=== PATIENT | female | born 1980 | race American Indian/Alaskan Native ===

== ENCOUNTER 2019-06-19 00:51 | Emergency (ER) | payer SELFPAY ==
--- NOTE | 2019-06-19 02:44 | Cat Scan Report ---
CT HEAD WITHOUT CONTRAST INDICATION: Fall/head inj TECHNIQUE: Axial slices were obtained through the head. Coronal and sagittal reformatted images were obtained. COMPARISON: None available. FINDINGS: There is no intracranial hemorrhage or extra-axial fluid collection. Ventricles, basilar cisterns, an d sulci appear within normal limits for age. There is no mass lesion or midline shift. No acute janet torial infarct is identified. Bone windows demonstrate no acute osseous abnormality. Paranasal sinuses and mastoid air cells appear clear. TECHNIQUE: All CT scans at this facility use dose modulation, iterative reconstruction, automated ex posure control, weight based dosing, when appropriate, to reduce radiation dose to as low as reasonab ly achievable. IMPRESSION: 1. No acute intracranial abnormality. Signer Name: Truman Westbrook MD Signed: 06/19/2019 2:40 AM Workstation Name: [id number]
[2019-06-19] MEDS ORDERED: DIPHtheria,PERTUSSIS(ACELL),TETANUS VACCINE/PF 0.5 ML VIAL IM ONE (04:36)
[2019-06-19] MEDS ORDERED: IBUPROFEN 400 MG TAB PO ONE (04:36)
[2019-06-19] MEDS ORDERED: LIDOCAINE-MPF (1%) 10 MG/1 ML VIAL 5 ML INFILTRATI ONE (04:37)
--- NOTE | 2019-06-19 04:39 | Emergency Department Report ---
ED Fall HPI - General Chief Complaint: Fall Stated Complaint: FELL AND HIT HEAD Source: family Mode of arrival: Ambulatory - History of Present Illness Initial Comments: Per EMS, patient is a 39-year-old -[place] female with no past medical history who presented to the ED with acute onset frontal scalp bleeding laceration after she slipped and fell at home while walking on the floor. Per EMS, patient had been attending [employer] for her daughter who just a 19 years old and that she had been drinking alcohol prior to the fall. The EMS states that the patient appeared heavily intoxicated in route to the ED with profuse bleeding on her frontal scalp. Per EMS, the family stated the patient did not lose any consciousness, has not had any nausea or vomiting, change in vision, chest pain or shortness of breath, neck pain, back pain, numbness and tingling or weakness of upper and lower extremities bilaterally, dizziness or lightheadedness prior to arrival in the ED. Patient personally states that she is not up-to-date with any tetanus vaccinations. MD Complaint: fall, other (frontal scalp laceration) -: Sudden, hour(s) (1) Fall From: standing ( and walking in the house while intoxicated on alcohol) When Fall Occurred: 1 hour [employer] Fall Witnessed: yes, by family Place Fall Occurred: home Loss of Consciousness: none Prolonged Down Time?: no Symptoms Prior to Fall: other (Intoxicated on alcohol) Location: head (frontal scalp) Severity: moderate Severity scale (0 -10): 6 Quality: sharp, aching Context: alcohol use Associated Symptoms: denies, headache. denies: neck pain, numbness, weakness, chest paint, shortness of breath, abdominal pain, hematuria, unable to walk, lightheaded, vertigo, confusion, other - Related Data Previous Rx's Medication Instructions Recorded Last Taken Type Ibuprofen [Motrin] 600 mg PO Q8H PRN #20 tablet 06/19/19 Unknown Rx cephALEXin [Keflex] 500 mg PO Q12HR #20 cap 06/19/19 Unknown Rx Allergies Allergy/AdvReac Type Severity Reaction Status Date / Time No Known Allergies Allergy Unverified 06/19/19 01:10 ED Review of Systems ROS: Stated complaint: FELL AND HIT HEAD Other details as noted in HPI Constitutional: denies: chills, fever Eyes: denies: eye pain, eye discharge, vision change ENT: denies: ear pain, throat pain Respiratory: denies: cough, shortness of breath, wheezing Cardiovascular: denies: chest pain, palpitations Endocrine: no symptoms reported Gastrointestinal: denies: abdominal pain, nausea, diarrhea Genitourinary: denies: urgency, dysuria, discharge Musculoskeletal: denies: back pain, joint swelling, arthralgia Skin: other (Bleeding right frontal scalp laceration). denies: rash, lesions Neurological: denies: headache, weakness, paresthesias Psychiatric: denies: anxiety, depression Hematological/Lymphatic: denies: easy bleeding, easy bruising ED Past Medical Hx - Past Medical History Previous Medical History?: No - Surgical History Past Surgical History?: No - Social History Smoking Status: Current Every Day Smoker Substance Use Type: Alcohol, Marijuana - Medications Home Medications: Home Medications Medication Instructions Recorded Confirmed Last Taken Type Ibuprofen [Motrin] 600 mg PO Q8H PRN #20 tablet 06/19/19 Unknown Rx cephALEXin [Keflex] 500 mg PO Q12HR #20 cap 06/19/19 Unknown Rx ED Physical Exam - General Limitations: Altered Mental Status General appearance: alert, in no apparent distress - Head Head exam: Present: other (Bleeding 3 cm right sided frontal scalp laceration) - Eye Eye exam: Present: normal appearance, PERRL, EOMI, other (Right periorbital hematoma with no tenderness) Pupils: Present: normal accommodation - ENT ENT exam: Present: normal exam, normal orophraynx, mucous membranes moist, TM's normal bilaterally, normal external ear exam - Neck Neck exam: Present: normal inspection, full ROM. Absent: tenderness, lymphadenopathy, thyromegaly - Respiratory Respiratory exam: Present: normal lung sounds bilaterally. Absent: respiratory distress, wheezes, rales, rhonchi, chest wall tenderness, accessory muscle use, decreased breath sounds, prolonged expiratory - Cardiovascular Cardiovascular Exam: Present: regular rate, normal rhythm, normal heart sounds. Absent: systolic murmur, diastolic murmur, rubs, gallop - GI/Abdominal GI/Abdominal exam: Present: soft, normal bowel sounds. Absent: tenderness, guarding, rebound, hyperactive bowel sounds - Extremities Exam Extremities exam: Present: normal inspection, full ROM, normal capillary refill - Back Exam Back exam: Present: normal inspection, full ROM. Absent: tenderness, CVA tenderness (R), muscle spasm, paraspinal tenderness, vertebral tenderness - Neurological Exam Neurological exam: Present: alert, oriented X3, CN II-XII intact, normal gait, reflexes normal - Psychiatric Psychiatric exam: Present: normal affect, normal mood, anxious, other (Intoxicated on alcohol but alert and oriented x3) - Skin Skin exam: Present: warm, dry, intact, normal color, other (Bleeding right anterior frontal scalp 3 cm laceration). Absent: rash ED Course Vital Signs 06/19/19 06/19/19 01:08 01:12 Temperature 98.7 F Pulse Rate 95 H Respiratory 18 18 Rate Blood Pressure 181/123 O2 Sat by Pulse 97 98 Oximetry - Laceration /Wound Repair Right Anterior Frontal Wound Location: head (right frontal scalp laceration) Wound Length (cm): 3 Wound's Depth, Shape: superficial Wound Explored: contaminated Irrigated w/ Saline (ccs): 50 Betadine Prep?: Yes Anesthesia: 1% Lidocaine Volume Anesthetic (ccs): 5 Wound Debrided: extensive Wound Repaired With: sutures Suture Size/Type: 5:0, proline Number of Sutures: 9 Layer Closure?: No Sterile Dressing Applied?: No Progress: Patient tolerated the procedure well and was discharged home on medications for pain and also prophylactic antibiotics and was advised to return to the ED or to her primary care physician in 8 to 10 days for suture removal. Patient was advised to return to the ED immediately if symptoms get worse. ED Medical Decision Making - Radiology Data Radiology results: report reviewed, image [place] [address] Cat Scan Report Signed Patient: RYAN CASTELLANOS MR#: [id number] : 1980 Acct:[id number] Age/Sex: 39 / F ADM Date: 06/19/19 Loc: ED Attending Dr: Ordering Physician: SUZAN WALL III, MD Date of Service: 06/19/19 Procedure(s): CT head/brain wo con Accession Number(s): [id number] cc: SUZAN WALL III, MD CT HEAD WITHOUT CONTRAST INDICATION: Fall/head inj TECHNIQUE: Axial slices were obtained through the head. Coronal and sagittal reformatted images were obtained. COMPARISON: None available. FINDINGS: There is no intracranial hemorrhage or extra-axial fluid collection. Ventricles, basilar cisterns, and sulci appear within normal limits for age. There is no mass lesion or midline shift. No acute territorial infarct is identified. Bone windows demonstrate no acute osseous abnormality. Paranasal sinuses and mastoid air cells appear clear. TECHNIQUE: All CT scans at this facility use dose modulation, iterative reconstruction, automated exposure control, weight based dosing, when appropriate, to reduce radiation dose to as low as reasonably achievable. IMPRESSION: 1. No acute intracranial abnormality. Signer Name: Truman Westbrook MD Signed: 06/19/2019 2:40 AM Workstation Name: [id number] Transcribed By: Dictated By: Truman Westbrook MD Electronically Authenticated By: Truman Westbrook MD Signed Date/Time: 06/19/19239 DD/ 6 TD/TT: - Medical Decision Making This is a 39-year-old -[place] female with no past medical history who presented to the ED with acute onset frontal scalp bleeding laceration after she slipped and fell at home while walking on the floor. Per EMS, patient had been attending [employer] for her daughter who just a 19 years old and that she had been drinking alcohol prior to the fall. The EMS states that the patient appeared heavily intoxicated in route to the ED with profuse bleeding on her frontal scalp. In the ED, patient is alert and oriented x3 and is not in distr ess but appears intoxicated. Patient is alert and well enough to carry out her normal conversation narrating what happened during the birthday republic[employer] of her daughter. Head CT scan without contrast shows no acute intracranial abnormalities or hemorrhage. Patient was treated for pain and also received booster tetanus vaccinations. The frontal scalp bleeding laceration was cleaned thoroughly and sutured per protocol. Patient tolerated the procedure well and was very cooperative during the procedure. Patient was therefore discharged home on pain medications and prophylactic antibiotics and advised to follow-up with her primary care physician in 7 to 10 days for reevaluation or return to the ED immediately if symptoms get worse. Patient was otherwise advised return to the ED or to her primary care physician in 8 to 10 days for suture removal. - Differential Diagnosis scalp laceration; Scalp contusion; Alcohol intoxication; Head injury Critical care attestation.: If time is entered above; I have spent that time in minutes in the direct care of this critically ill patient, excluding procedure time. ED Disposition Clinical Impression: Contusion of scalp Qualifiers: Encounter type: initial encounter Qualified Code(s): S00.03XA - Contusion of scalp, initial encounter Scalp laceration Qualifiers: Encounter type: initial encounter Qualified Code(s): S01.01XA - Laceration without foreign body of scalp, initial encounter Alcohol intoxication Qualifiers: Complication of substance-induced condition: uncomplicated Qualified Code(s): F10.920 - Alcohol use, unspecified with intoxication, uncomplicated Disposition: - TO HOME OR SELFCARE Is pt being admited?: No Does the pt Need Aspirin: No Condition: Stable Instructions: Scalp Contusion in Adults (ED), Laceration (ED), Alcohol Intoxication (ED) Additional Instructions: Take medication with food, drink plenty of fluids and follow-up with your primary care physician in 7 to 10 days for reevaluation. Return to the ED or to your primary care physician in 8 to 10 days for suture removal. Otherwise return to the ED immediately if symptoms get worse. Prescriptions: cephALEXin [Keflex] 500 mg PO Q12HR #20 cap Ibuprofen [Motrin] 600 mg PO Q8H PRN #20 tablet PRN Reason: Pain Referrals: [facility] [Provider Group] - 3-5 Days Time of Disposition: 04:43 Print Language: IRISH
[2019-06-19 05:02] VITALS: BP 147/91
== END 2019-06-19 05:11 | disposition home or self-care (01) ==
LOC: ED 00:51
DX: S01.01XA Laceration without foreign body of scalp, initial encounter (principal); F17.200 Nicotine dependence, unspecified, uncomplicated; F12.10 Cannabis abuse, uncomplicated; Z79.1 Long term (current) use of non-steroidal anti-inflammatories (NSAID); Z79.899 Other long term (current) drug therapy; W01.0XXA Fall on same level from slipping, tripping and stumbling without subsequent striking against object, initial encounter; Y93.89 Activity, other specified; Y92.009 Unspecified place in unspecified non-institutional (private) residence as the place of occurrence of the external cause; Y99.8 Other external cause status
CPT/HCPCS: 70450; 90471; 90715